=== PATIENT | female | born 1965 | race Caucasian/White ===

== ENCOUNTER 2021-09-14 09:55 | Inpatient (IN) | payer BC, OTHER ==
[~2021-09-14] VITALS: Ht 162.6 cm; Wt 86.1 kg
[2021-09-14 11:37] LABS: BASO % 0.5 % (0.0-2.0); EOS # 0.1 K/mm3 (0.0-0.7); EOS % 0.9 % (0.0-4.0); GRAN # 3.5 K/mm3 (1.4-6.5); GRAN % 63.2 % (42.2-75.2); HEMATOCRIT 40.8 % (37.0-47.0); HEMOGLOBIN 13.9 g/dl (12.5-16.0); LYMPH # 1.8 K/mm3 (1.2-3.4); MEAN CELL VOLUME 93 fl (80.0-100.0); MEAN CORPUSCULAR HEMOGLOBIN 32 pg (27-31); MEAN CORPUSCULAR HGB CONC 34 g/dl (33.0-37.0); MEAN PLATELET VOLUME 11.1 fl (7.4-10.4); MONO # 0.2 K/mm3 (0.1-0.6); MONO % 3.2 % (1.7-9.3); PLATELET COUNT 203 K/mm3 (130-400); RED BLOOD COUNT 4.38 M/mm3 (4.10-5.30); REDCELL DISTRIBUTION WIDTH-CV 13.1 % (11.5-14.5)
[2021-09-14 11:56] LABS: ALBUMIN 4.2 gm/dL (3.5-5.0); BILIRUBIN,TOTAL 0.6 mg/dL (0.2-1.2); CALCIUM 9.7 mg/dL (8.4-10.2); CREATININE, serum 0.78 mg/dL (0.57-1.11); TOTAL PROTEIN 7.5 gm/dL (6.2-8.1)
[2021-09-14 12:08] LABS: POTASSIUM 4.1 mmol/L (3.5-4.5)
[2021-09-14 17:33] LABS: TOTAL PROTEIN,CSF 57 mg/dL (15-45)
[2021-09-14 18:21] LABS: CSF APPEARANCE CLEAR; CSF COLOR COLORLESS; CSF MONONUCLEAR 100 % (70-100); CSF POLYMORPHONUCLEAR 0 % (0-6); CSF RBC 149 /mm3 (0-0)
[2021-09-14] MEDS ORDERED: GLUCOPHAGE XR750 MG PO (19:44)
[2021-09-14] MEDS ORDERED: PRINIVIL10 MG PO (19:45)
[2021-09-14] MEDS ORDERED: LIPITOR 10MG10 MG PO (19:46)
[2021-09-14 20:20] VITALS: BP 125/56; PULSE 66; TEMP 98.4
[2021-09-14 23:45] VITALS: BP 131/65; PULSE 63; TEMP 98.2
[2021-09-15 03:31] VITALS: BP 120/65; PULSE 68; TEMP 98.1
--- NOTE | 2021-09-15 04:51 | NUR ---
PT ARRIVED TO MEDICAL FLOOR AROUND 1830HRS PER DAYSHIFT RN, TO RM 315. PT A&O X 4; VSS; O2 RA. PT DENIED CHEST PAIN, GENERAL PAIN, PALPITATIONS, N,V,D, SOB OR DIZZINESS. ADMISSIONS ASSESSMENT AND MED REC COMPLETE. PT ORIENTED TO ROOM AND HOSPITAL POLICY. POC DISCUSSED WITH PT. PT VERBALIZED UNDERSTANDING. ALL QUESTIONS AND CONCERNS ADDRESSED. PT EXPRESSED NO ADDITIONAL NEEDS AT THIS TIME. CALL LIGHT WITHIN REACH.
[2021-09-15 06:38] LABS: HEMATOCRIT 40.2 % (37.0-47.0); HEMOGLOBIN 13.6 g/dl (12.5-16.0); MEAN CELL VOLUME 93 fl (80.0-100.0); MEAN CORPUSCULAR HEMOGLOBIN 31 pg (27-31); MEAN CORPUSCULAR HGB CONC 34 g/dl (33.0-37.0); MEAN PLATELET VOLUME 11.3 fl (7.4-10.4); PLATELET COUNT 194 K/mm3 (130-400); RED BLOOD COUNT 4.34 M/mm3 (4.10-5.30); REDCELL DISTRIBUTION WIDTH-CV 12.8 % (11.5-14.5)
[2021-09-15 06:50] LABS: CALCIUM 9.2 mg/dL (8.4-10.2); CREATININE, serum 0.78 mg/dL (0.57-1.11); POTASSIUM 4.2 mmol/L (3.5-4.5)
[2021-09-15 07:36] LABS: LYMPHOCYTE 13 % (20.0-51.0); NEUTROPHILS 87 % (42.0-75.2); PLATELET ESTIMATE NORMAL (NORMAL)
[2021-09-15 08:09] VITALS: BP 139/80; PULSE 93; TEMP 97.9
[2021-09-15 08:38] LABS: LYME DISEASE ANTIBODIES Negative (Negative)
--- NOTE | 2021-09-15 09:37 | NUR ---
Initial visit; Patient thanked Process Development Technician for looking in on her and offering prayer and God's blessings. Patient has been diagnosed with MS and is receptive to Process Development Technician keeping her in Process Development Technician's prayers.
[2021-09-15 11:46] VITALS: BP 133/69; PULSE 74; TEMP 97.7
[2021-09-15 12:28] LABS: MUCOUS Present (NOT PRESENT); PH 5 (5-8); SQUAMOUS EPITHELIAL 0-2 /hpf (0-10); URINE APPEARANCE Clear (CLEAR/HAZY); URINE BACTERIA None Seen /hpf (NONE SEEN); URINE BILIRUBIN Negative (NEGATIVE); URINE BLOOD 2+ (NEGATIVE); URINE COLOR Yellow (YELLOW); URINE GLUCOSE 3+ (NEGATIVE); URINE KETONE Trace (NEGATIVE); URINE LEUKOCYTE ESTERASE Negative (NEGATIVE); URINE NITRATE Negative (NEGATIVE); URINE PROTEIN(semi-quant) Negative (NEGATIVE); URINE RBC 0-2 /hpf (0-2); URINE UROBILINOGEN Negative (NEGATIVE)
[2021-09-15 12:32] LABS: ANA SCREEN with REFLEX Negative (Negative)
[2021-09-15 14:16] LABS: COLLECTION METHOD CATHETER
--- NOTE | 2021-09-15 15:27 | NUR ---
Transportation Design Engineer met with patient to discuss discharge planning. Patient lives in [place] and advised her daughter, Michelle (ph#[phone]) lives with her. Patient sees Dr. Miguel Angel Castillo for primary care and obtains medications from [facility] in . Patient has a rollator for ambulation. SW discussed therapy recommendation for I[facility] and patient is very much interested. Patient would also be interested in completing DPOA-HC during her admission. SW will follow up. BRITTANI contacted [facility] Director to give referral. Discharge Plan: IPR screen
[2021-09-15 15:31] VITALS: BP 143/62; PULSE 98; TEMP 97.5
[2021-09-15 19:35] VITALS: BP 142/63; PULSE 82; TEMP 98.5
--- NOTE | 2021-09-15 20:30 | NUR ---
Patient is resting in bed, alert and oriented x 4, VSS, States headache, tylenol provided. Pt able to ambulate using the walker, assisted to the restroom. Left side weakness. Telemetry in place, NSR 80's. Assessment completed, medications provided. No other needs at this time. Call light within reach.
[2021-09-15 22:53] VITALS: BP 126/59; PULSE 83; TEMP 97.4
[2021-09-16 03:18] VITALS: BP 130/72; PULSE 63; TEMP 97.9
--- NOTE | 2021-09-16 05:47 | NUR ---
Pt has had an uneventful night. Continue receiving her doses of acyclovir. No other needs at this time. Report will be given to day RN.
[2021-09-16 07:35] VITALS: BP 137/79; PULSE 69; TEMP 97.4
--- NOTE | 2021-09-16 10:44 | NUR ---
PT ALERT AND ORIENTED UPON ENTRY. CALM AND COOPERATIVE. DENIES PAIN. SHIFT ASSESSMENT AND NEURO CHECK COMPLETED. MEDICATIONS ADMINISTERED AND PT EDUCATED. VS STABLE. FSBS 253, INSULIN ADMINISTERED. PT OOB WITH OT THIS MORNING. UNSTEADY GATE BUT MORE STEADY WITH THE WALKER. WILL CONTINUE TO MONITOR. PT REPORTS NO QUESTIONS AT THIS TIME.
[2021-09-16 10:52] LABS: HSV 2 DNA PCR QUAL Not Detected (())
[2021-09-16 11:42] VITALS: BP 136/72; BP 136/725; PULSE 76; TEMP 97.9
--- NOTE | 2021-09-16 13:51 | NUR ---
[employer]mercial [employer] Account Executive followed up with patient on DPOA- paperwork. SW assisted patient in completing the form and patient chose to designate her daughter, Steffi as primary agent. Patient did not want to designate an alternate agent. BRITTANI and BRITTANI Borges provided witness signature. BRITTANI provided original and copies to patient, then placed copy in chart. BRITTANI spoke with Regi, [facility] Director who advised she will submit to patient's insurance this afternoon.
[2021-09-16 16:33] VITALS: BP 148/73; PULSE 68; TEMP 97.7
--- NOTE | 2021-09-16 16:52 | NUR ---
PT HAD AN UN-EVENTFUL DAY, NO ADVERSE EVENTS THROUGHOUT THE SHIFT. PT REMAINS ALERT AND ORIENTED. PRN TYLENOL ADMINISTERED X1 FOR 7/10 HEADACHE PAIN TODAY. VITAL SIGNS STABLE. BLOOD SUGARS REMAIN ELEVATED, INSULIN ADMINISTERED. PT CALM AND COOPERATIVE. WORKED WITH PT/OT TODAY. RESTING IN BED NOW. CONTINUING Q4 NEURO CHECKS AND ASSESSMENTS. PT REPORTS NO QUESTIONS AT THIS TIME. NO CONCERNS AT THIS TIME, WILL CONTINUE TO MONITOR.
--- NOTE | 2021-09-16 20:30 | NUR ---
Patient is resting in bed, alert and oriented x 4, VSS. Denies pain. Telemetry in place, NSR. Assessment completed, medications provided. No other needs at this time. Call light within reach.
[2021-09-16 20:39] VITALS: BP 114/57; PULSE 65; TEMP 98
[2021-09-17 00:42] VITALS: BP 131/75; PULSE 66; TEMP 97.7
[2021-09-17 04:21] VITALS: BP 127/60; PULSE 58; TEMP 97.6
--- NOTE | 2021-09-17 05:32 | NUR ---
Patient has had a calm night. Continues getting antibiotics. Able to transfer herself to the restroom and back to bed. Report will be given to day RN.
[2021-09-17 08:17] VITALS: BP 130/66; PULSE 62; TEMP 97.9
[2021-09-17 08:19] VITALS: BP 133/88; PULSE 74; TEMP 97.6
--- NOTE | 2021-09-17 08:35 | NUR ---
PT ALERT AND ORIENTED TO PERSON, PLACE, AND TIME THIS MORNING. CALM AND COOPERATIVE. THE PERIPHERAL IV IN THE LEFT ANTECUBITAL WAS REPORTED TO HAVE BEEN LEAKING OVERNIGHT. A NEW IV WAS STARTED THIS MORNING IN THE LEFT WRIST BY MIGUEL ÁNGEL RN AND NICO, COMPUTER GRAPHIC ARTIST. PT REPORTS A MILD HEADACHE, BUT STATES THAT PRN TYLENOL WAS GIVEN EARLY THIS MORNING AND IT DECREASED THE PAIN. SHIFT ASSESSMENT PERFORMED. COMPUTER GRAPHIC ARTIST WILL BE ADMINISTERING MORNING MEDICATIONS TO PT. EDUCATION PROVIDED TO PT. PT RESTING COMFORTABLY IN BED. VITALS AND BLOOD SUGARS STABLE. WILL CONTINUE TO MONITOR.
[2021-09-17] MEDS ORDERED: TYLENOL 325MG325 MG PO (09:07)
[2021-09-17] MEDS ORDERED: DULCOLAX TAB5 MG PO (09:08)
[2021-09-17] MEDS ORDERED: SENNA-S 50 MG-81 TAB PO (09:08)
[2021-09-17] MEDS ORDERED: MIRALAX PA17 GM/Dose PO (09:08)
[2021-09-17] MEDS ORDERED: COLACE 100100 MG/CAP PO (09:08)
[2021-09-17] MEDS ORDERED: PROTONIX 40MG T40 MG PO (09:08)
[2021-09-17] MEDS ORDERED: LEVEMIR100 U/ML SQ (09:09)
[2021-09-17] MEDS ORDERED: SOLU-MEDRO1000 MG/1 IV (09:12)
--- NOTE | 2021-09-17 09:57 | NUR ---
Patient to discharge to [facility] today.
--- NOTE | 2021-09-17 10:20 | NUR ---
REPORT GIVEN OVER THE PHONE TO [facility] RN. PT DISCHARGED FROM MEDICAL AND MOVED OVER TO INPATIENT REHAB.
--- NOTE | 2021-09-17 13:03 | NUR ---
Primary nurse was assisted with [phone] patient care by [employer] student Patricia Jones and [employer] instructor Taya Clarke MSN, RN.
[2021-09-21 09:41] LABS: CSF OLIG BD INTERPRETATION 4 bands (<2); SE OLIGOCLONAL BANDING 2 bands (())
[2021-09-25] MEDS ORDERED: PROTONIX 40MG T40 MG PO (10:14)
[2021-09-25] MEDS ORDERED: LEVEMIR100 U/ML SQ (10:16)
[2021-09-25] MEDS ORDERED: PREDNISONE20 MG PO (10:16)
[2021-09-25] MEDS ORDERED: LEVEMIR FLEX100 U/ML SQ (10:24)
[2021-09-25] MEDS ORDERED: INSULIN PEN NE1 EAC1 MC (10:36)
== END 2021-09-17 10:15 | DRG 58 ==
LOC: COL.ER 09:55 → MEDICAL 13:37
PROVIDERS: Physician Assistant; Student in an Organized Health Care Education/Training Program; ADMIT Internal Medicine
PROC: 009U3ZX Drainage of Spinal Canal, Percutaneous Approach, Diagnostic (ICD-10-PCS; principal; 2021-09-14)
DX: G35 Multiple sclerosis (principal); G82.50 Quadriplegia, unspecified; F32.A Depression, unspecified; R32 Unspecified urinary incontinence; I10 Essential (primary) hypertension; E78.5 Hyperlipidemia, unspecified; K59.00 Constipation, unspecified; E11.9 Type 2 diabetes mellitus without complications; Z85.828 Personal history of other malignant neoplasm of skin; Z23 Encounter for immunization
CPT/HCPCS: 99223-AI; 99232-AI; 99233-AI; A9575; J0133; J0696; J1650; J1815; J2930; J3370; J7040; J7050

== ENCOUNTER → 2022-01-01 | Outpatient (CLI) | payer BC, OTHER ==
[~2022-01-01] MED LIST: COLACE 100100 MG/CAP PO; DULCOLAX TAB5 MG PO; GLUCOPHAGE XR750 MG PO; INSULIN PEN NE1 EAC1 MC; LEVEMIR FLEX100 U/ML SQ; LEVEMIR100 U/ML SQ; LIPITOR 10MG10 MG PO; MIRALAX PA17 GM/Dose PO; PREDNISONE20 MG PO; PRINIVIL10 MG PO; PROTONIX 40MG T40 MG PO; SENNA-S 50 MG-81 TAB PO; SOLU-MEDRO1000 MG/1 IV; TYLENOL 325MG325 MG PO
== END ==
LOC: COL.RAD 10:19
DX: G35 Multiple sclerosis (principal)